=== PATIENT | female | born 1985 | race Caucasian/White ===

== ENCOUNTER 2016-10-25 09:11 | Emergency (ER) | payer MEDICAID ==
[~2016-10-25] VITALS: Ht 167.6 cm; Wt 91.0 kg
[~2016-10-25 09:11] MED LIST: MACR100C PO; PYRI200T4 PO
[2016-10-25 09:13] VITALS: BP 126/75; PULSE 95; RESP 16; TEMP 97.7; O2SAT 100
[2016-10-25 09:47] LABS: BASOPHIL # 0.1 TH/MM3 (0-0.2); BASOPHIL % 0.8 % (0.0-2.0); EOSINOPHIL # 0.2 TH/MM3 (0-0.4); EOSINOPHIL % 1.2 % (0.0-4.0); HEMATOCRIT 43.2 % (35.0-46.0); HEMO FLAGS DIFF FINAL; LYMPH % 37.2 % (9.0-44.0); LYMPHOCYTE # 4.7 TH/MM3 (1.0-4.8); MEAN CELL VOLUME 90.1 FL (80.0-100.0); MEAN CORPUSCULAR HEMOGLOBIN 31.3 PG (27.0-34.0); MEAN CORPUSCULAR HGB CONC 34.7 % (32.0-36.0); MONO % 5.9 % (0.0-8.0); NEUT % 54.9 % (16.0-70.0); PLATELET COUNT 330 TH/MM3 (150-450); RED BLOOD COUNT 4.79 MIL/MM3 (4.00-5.30); RED CELL DISTRIBUTION WIDTH 13.5 % (11.6-17.2); WHITE BLOOD COUNT 12.7 TH/MM3 (4.0-11.0)
[2016-10-25 09:58] LABS: APTT (PATIENT) 29.9 SEC (24.3-30.1); PROTHROMBIN TIME - PATIENT 10.6 SEC (9.8-11.6)
[2016-10-25 10:00] VITALS: BP 131/84; PULSE 77; RESP 16; O2SAT 98
[2016-10-25 10:02] LABS: ANION GAP 10 MEQ/L (5-15); AST (GOT) 24 U/L (15-37); BICARBONATE 20.7 MEQ/L (21.0-32.0); BLOOD UREA NITROGEN 15 MG/DL (7-18); CHLORIDE 107 MEQ/L (98-107); GLOMERULAR FILTRATION RATE 70 ML/MIN (>89); POTASSIUM 3.7 MEQ/L (3.5-5.1); SODIUM (NA) 138 MEQ/L (136-145)
[2016-10-25 10:03] LABS: ALT (GPT) 32 U/L (10-53)
[2016-10-25 10:07] LABS: ALKALINE PHOSPHATASE 49 U/L (45-117); TOTAL BILIRUBIN ADULT 0.4 MG/DL (0.2-1.0)
[2016-10-25] MEDS ORDERED: LORazepam 2 MG/ML VIAL IV PUSH ONE (10:15)
[2016-10-25] MEDS ORDERED: SODIUM CHLOR 0.9% 1000 ML INJ 1,000 ML IV ONE (10:15)
[2016-10-25] MEDS ORDERED: KETOROLAC TROMETHAMINE 30 MG/ML (IVP) VIAL IV PUSH ONE (10:15)
--- NOTE | 2016-10-25 10:20 | RADRPT ---
EXAM DATE/TIME: 10/25/2016 09:52 [facility] COMPARISON: No previous studies available for comparison. INDICATIONS : Chest pain since this morning. MEDICAL HISTORY : None. SURGICAL HISTORY : None. ENCOUNTER: Initial ACUITY: 1 day PAIN SCORE: 8/10 LOCATION: Bilateral chest FINDINGS: A single view of the chest demonstrates the lungs to be symmetrically aerated without evidence of mas s, infiltrate or effusion. The cardiomediastinal contours are unremarkable. Osseous structures are intact. CONCLUSION: No acute disease. Sylvester Ellis MD on October 25, 2016 at 10:18 Board Certified Radiologist. This report was verified electronically.
[2016-10-25 11:00] VITALS: PULSE 84; RESP 18; O2SAT 99
[2016-10-25 11:45] LABS: BETA HCG QUANT LESS THAN 1 MIU/ML (0-5)
--- NOTE | 2016-10-25 11:59 | PD ---
HPI Chief Complaint: Chest Pain Time Seen by Provider: 09:45 Travel History International Travel<30 days: No Contact w/Intl Traveler<30days: No Traveled to known affect area: No History of Present Illness HPI Is a 31-year-old woman who presents to the emergency department complaining of chest pain. She is initially somewhat hysterical and hyperventilating. She states she has sharp stabbing chest pain that started abruptly this morning. The middle part of her chest. She has some associated abdominal discomfort and nausea. No vomiting. No change in her bowel movements. She also complains of numbness tingling around her face and her arms. She has otherwise been feeling generally well and healthy. No history of previous similar problems. She does have history of indigestion and reflux symptoms. She only uses NSAIDs very occasionally, alcohol occasionally, no recent significant use. History Past Medical History Narrative Medical GERD Medical History: Denies Significant Hx Tetanus Vaccination: Unknown Influenza Vaccination: No LMP: 2 weeks ago Menopausal: No : 2 Para: 1 Dilation and Curettage (D&C): Yes Past Surgical History Surgical History: No Previous Surgery Social History Alcohol Use: Yes ("VERY RARELY") Tobacco Use: No (quit 6 years ) Allergies-Medications (Allergen,Severity, Reaction): Coded Allergies: No Known Allergies (Verified , 10/25/16) Reported Meds & Prescriptions Reported Meds & Active Scripts Active No Active Prescriptions or Reported Medications Review of Systems Except as stated in HPI: all other systems reviewed are Neg Physical Exam Narrative GENERAL: Well-appearing 31 year-old woman, tachypnea can somewhat hysterical. SKIN: Focused skin assessment warm/dry. HEAD: Atraumatic. Normocephalic. CARDIOVASCULAR: Regular rate and rhythm. No murmur appreciated. RESPIRATORY: No accessory muscle use. Clear to auscultation. Breath sounds equal bilaterally. GASTROINTESTINAL: Abdomen soft, non-tender, nondistended. Hepatic and splenic margins not palpable. MUSCULOSKELETAL: No obvious deformities. No edema. NEUROLOGICAL: Awake and alert. No obvious cranial nerve deficits. Motor grossly within normal limits. Normal speech. PSYCHIATRIC: Appropriate mood and affect; insight and judgment normal. Data Data Last Documented VS Vital Signs Date Time Temp Pulse Resp B/P Pulse Ox O2 Delivery O2 Flow Rate FiO2 10/25/16 12:00 116 20 122/84 100 Nasal Cannula 2 10/25/16 09:13 97.7 Orders Electrocardiogram (10/25/16 ) Complete Blood Count With Diff (10/25/16 09:21) Comprehensive Metabolic Panel (10/25/16 09:21) Troponin I (10/25/16 09:21) Prothrombin Time / Inr (Pt) (10/25/16 09:21) Act Partial Throm Time (Ptt) (10/25/16 09:21) D-Dimer (10/25/16 09:45) Chest, Single Ap (10/25/16 ) Beta Hcg (Quant/Titer) (10/25/16 09:45) Us Abdomen Gallbladder (10/25/16 ) Ketorolac Inj (Toradol Inj) (10/25/16 10:15) Sodium Chlor 0.9% 1000 Ml Inj (Ns 1000 M (10/25/16 10:15) Lorazepam Inj (Ativan Inj) (10/25/16 10:15) Labs Laboratory Tests Test 10/25/16 09:25 White Blood Count 12.7 TH/MM3 Red Blood Count 4.79 MIL/MM3 Hemoglobin 15.0 GM/DL Hematocrit 43.2 % Mean Corpuscular Volume 90.1 FL Mean Corpuscular Hemoglobin 31.3 PG Mean Corpuscular Hemoglobin 34.7 % Concent Red Cell Distribution Width 13.5 % Platelet Count 330 TH/MM3 Mean Platelet Volume 7.9 FL Neutrophils (%) (Auto) 54.9 % Lymphocytes (%) (Auto) 37.2 % Monocytes (%) (Auto) 5.9 % Eosinophils (%) (Auto) 1.2 % Basophils (%) (Auto) 0.8 % Neutrophils # (Auto) 7.0 TH/MM3 Lymphocytes # (Auto) 4.7 TH/MM3 Monocytes # (Auto) 0.7 TH/MM3 Eosinophils # (Auto) 0.2 TH/MM3 Basophils # (Auto) 0.1 TH/MM3 CBC Comment DIFF FINAL Differential Comment Prothrombin Time 10.6 SEC Prothromb Time International 1.0 RATIO Ratio Activated Partial 29.9 SEC Thromboplast Time D-Dimer Quantitative (PE/DVT) 0.26 MG/L FEU Sodium Level 138 MEQ/L Potassium Level 3.7 MEQ/L Chloride Level 107 MEQ/L Carbon Dioxide Level 20.7 MEQ/L Anion Gap 10 MEQ/L Blood Urea Nitrogen 15 MG/DL Creatinine 0.92 MG/DL Estimat Glomerular Filtration 70 ML/MIN Rate Random Glucose 100 MG/DL Calcium Level 9.2 MG/DL Total Bilirubin 0.4 MG/DL Aspartate Amino Transf 24 U/L (AST/SGOT) Alanine Aminotransferase 32 U/L (ALT/SGPT) Alkaline Phosphatase 49 U/L Troponin I LESS THAN 0.02 NG/ML Total Protein 8.6 GM/DL Albumin 4.3 GM/DL Human Chorionic Gonadotropin, LESS THAN 1 Quant MIU/ML [facility] Medical Decision Making Medical Screen Exam Complete: Yes Emergency Medical Condition: Yes Interpretation(s) My review of EKG: Normal sinus rhythm at a rate of 97, normal axis, normal intervals, no acute ischemia. LABS: CBC remarkable for mild leukocytosis. CMP generally unremarkable. Troponin negative. HCG negative. D-dimer normal Coags unremarkable Chest x-ray negative. Differential Diagnosis Gastritis, pancreatitis, cholecystitis, ACS, PE, other Narrative Course Medical decision making 31-year-old woman presents to the emergency department with epigastric pain rating into the chest associated with tachypnea and hyperventilation. I think her numbness and tingling is from hyperventilation. This seems to be GI in origin. I don't see evidence of PE or ACS. We'll check labs, x-ray, ultrasound of the right upper quadrant, reassess. Diagnosis Primary Impression: Gastritis Additional Instructions: Take Lortab if needed for pain. Take ranitidine as prescribed. Return to the emergency department for any worsening abdominal pain, chest pain , trouble breathing, or any other new or worsening symptoms. Med/Other Pt SpecificInfo: Prescription(s) given Scripts Hydrocodone-Acetaminophen (Lortab)5-325 Mg Tab1-2 Tab PO Q6H PRN (PAIN) #12 TAB Prov:Alfonso Bruner MD 10/25/16 Ranitidine 150 Mg [id number] Mg PO BID #60 CAP Prov:Alfonso Bruner MD 10/25/16 Disposition: 01 DISCHARGE HOME Condition: Stable Alfonso Bruner MD Oct 25, 2016 11:59
[2016-10-25 12:00] VITALS: BP 122/84; PULSE 116; RESP 20; O2SAT 100
--- NOTE | 2016-10-25 13:47 | EKG ---
Date Performed: 10/25/2016 Time Performed: 09:15:23 PTAGE: 31 years EKG: Baseline artifact present Sinus rhythm NORMAL ECG NO PREVIOUS TRACING DOCTOR: Uday Diehl Interpretating Date/Time 10/25/2016 13:46:52
--- NOTE | 2016-10-25 14:58 | RADRPT ---
EXAM DATE/TIME: 10/25/2016 10:39 [facility] COMPARISON: None available. INDICATIONS : Right upper quadrant pain. MEDICAL HISTORY : Right upper quadrant pain. SURGICAL HISTORY : D&C. ENCOUNTER: Initial ACUITY: 1 day PAIN SCORE: 6/10 LOCATION: Right upper quadrant MEASUREMENTS: LIVER: 13.3 cm length COMMON DUCT: 3 mm RIGHT KIDNEY: 11.0 x 5.1 x 5.9 cm FINDINGS: LIVER: Normal echotexture without focal lesion or ductal dilatation. COMMON DUCT: No intraluminal mass or stone visualized. GALLBLADDER: Contains no stones, demonstrates no wall thickening or pericholecystic fluid. PANCREAS: The visualized portions are within normal limits. RIGHT KIDNEY: No evidence of hydronephrosis, stone, or mass. CONCLUSION: 1. Negative examination. Brett Wood MD on October 25, 2016 at 14:55 Board Certified Radiologist. This report was verified electronically.
[2016-10-25] MEDS ORDERED: RANI150C PO (15:05)
[2016-10-25] MEDS ORDERED: HYDR-3533 PO (15:05)
[2016-10-25 15:34] VITALS: BP 136/78
== END 2016-10-25 15:35 | disposition home or self-care (01) ==
LOC: NEPC 09:11
DX: K29.70 Gastritis, unspecified, without bleeding (principal)
CPT/HCPCS: 71010; 76705; 80053; 84484; 84702; 85025; 85379; 85610; 85730; 93005; 96361; 96374; 96375; 99285; J1885; J2060; J7030

== ENCOUNTER 2016-10-27 07:27 | Emergency (ER) | payer MEDICAID ==
[~2016-10-27] VITALS: Ht 167.6 cm; Wt 91.0 kg
[~2016-10-27 07:27] MED LIST changes: +HYDR-3533 PO; -MACR100C PO; -PYRI200T4 PO; +RANI150C PO
[2016-10-27 07:29] VITALS: BP 140/75; PULSE 88; RESP 17; TEMP 98.7; O2SAT 100
[2016-10-27 07:43] VITALS: BP 154/79; PULSE 81; RESP 12; TEMP 98.4; O2SAT 97
[2016-10-27] MEDS ORDERED: SODIUM CHLORIDE 0.9% FLUSH 10 ML FLUSH IV FLUSH PRN (07:45)
[2016-10-27 07:49] VITALS: O2SAT 99
[2016-10-27] MEDS ORDERED: SODIUM CHLOR 0.9% 1000 ML INJ 1,000 ML IV SCH (08:10)
--- NOTE | 2016-10-27 08:10 | PD ---
HPI Chief Complaint: GI Complaint Time Seen by Provider: 07:47 Travel History International Travel<30 days: No Contact w/Intl Traveler<30days: No Traveled to known affect area: No History of Present Illness HPI Patient is a 31-year-old female presents emergency department for second evaluation in 2 days of epigastric pain nausea vomiting. Patient was evaluated here by Dr. Bruner with lab works diagnosed with gastritis E other day. She states that since leaving she is continue to have pain, with some nausea and vomiting this morning and then she had some flecks of blood in her emesis this morning as well. She states prior to that it was just foamy emesis. Denies any diarrhea denies any constipation. She has not been taking any medicines at home to help her symptoms. She doesn't have a primary care physician with which to follow up with. No history of liver disease or kidney disease. Denies any dysuria vaginal bleeding vaginal discharge possibly for . PFSH Past Medical History Hx Anticoagulant Therapy: No Cancer: No Cardiovascular Problems: No Diabetes: No Diminished Hearing: No Endocrine: No Gastrointestinal Disorders: No Genitourinary: No Hepatitis: No Hiatal Hernia: No Hypertension: No Immune Disorder: No Musculoskeletal: No Neurologic: No Psychiatric: No Reproductive: Yes Respiratory: No Immunizations Current: Yes Thyroid Disease: No ?: Not LMP: 2 weeks ago Menopausal: No : 2 Para: 1 Miscarriage: 1 : 0 Ectopic : No Ovarian Cysts: No Dilation and Curettage (D&C): Yes Tubal Ligation: No Past Surgical History Surgical History: No Previous Surgery AICD: No Section: No Hysterectomy: No Joint Replacement: No Pacemaker: No Other Surgery: No Social History Alcohol Use: Yes ("VERY RARELY") Tobacco Use: No (quit 6 years ) Substance Use: No Allergies-Medications (Allergen,Severity, Reaction): Coded Allergies: No Known Allergies (Verified , 10/27/16) Reported Meds & Prescriptions Reported Meds & Active Scripts Active Zofran (Ondansetron HCl) 4 Mg Tab 4 Mg PO Q8HR PRN Lortab (Hydrocodone-Acetaminophen) 5-325 Mg Tab 1-2 Tab PO Q6H PRN Ranitidine (Ranitidine HCl) 150 Mg Cap 150 Mg PO BID Review of Systems Except as stated in HPI: all other systems reviewed are Neg Physical Exam Narrative GENERAL: Well-developed well-nourished no obvious distress. SKIN: Focused skin assessment warm/dry. HEAD: Atraumatic. Normocephalic. EYES: Pupils equal and round. No scleral icterus. No injection or drainage. ENT: No nasal bleeding or discharge. Mucous membranes pink and moist. NECK: Trachea midline. No JVD. CARDIOVASCULAR: Regular rate and rhythm. No murmur appreciated. RESPIRATORY: No accessory muscle use. Clear to auscultation. Breath sounds equal bilaterally. GASTROINTESTINAL: Abdomen soft, minimal tenderness in the epigastric area, nondistended. Hepatic and splenic margins not palpable. No CVA tenderness MUSCULOSKELETAL: No obvious deformities. No clubbing. No cyanosis. No edema. NEUROLOGICAL: Awake and alert. No obvious cranial nerve deficits. Motor grossly within normal limits. Normal speech. PSYCHIATRIC: Appropriate mood and affect; insight and judgment normal. Data Data Last Documented VS Vital Signs Date Time Temp Pulse Resp B/P Pulse Ox O2 Delivery O2 Flow Rate FiO2 10/27/16 07:49 99 Room Air 10/27/16 07:43 98.4 81 12 154/79 Orders Complete Blood Count With Diff (10/27/16 07:43) Comprehensive Metabolic Panel (10/27/16 07:43) Lipase (10/27/16 07:43) Urinalysis - C+S If Indicated (10/27/16 07:43) Iv Access Insert/Monitor (10/27/16 07:43) Ecg Monitoring (10/27/16 07:43) Oximetry (10/27/16 07:43) Sodium Chloride 0.9% Flush (Ns Flush) (10/27/16 07:45) Electrocardiogram (10/27/16 07:43) Ed Urine Pregnancytest Poc (10/27/16 07:43) Ondansetron Inj (Zofran Inj) (10/27/16 08:15) Sodium Chlor 0.9% 1000 Ml Inj (Ns 1000 M (10/27/16 08:10) Al-Mag Hy-Si 40-40-4 Mg/Ml Liq (Mag-Al P (10/27/16 08:15) Lidocaine 2% Viscous (Xylocaine 2% Visco (10/27/16 08:15) Labs Laboratory Tests Test 10/27/16 10/27/16 08:35 09:38 Urine Color LIGHT-YELLOW Urine Turbidity HAZY Urine pH 7.5 Urine Specific [place] 1.005 Urine Protein NEG mg/dL Urine Glucose (UA) NEG mg/dL Urine Ketones NEG mg/dL Urine Occult Blood NEG Urine Nitrite NEG Urine Bilirubin NEG Urine Urobilinogen LESS THAN 2.0 MG/DL Urine Leukocyte Esterase SMALL Urine RBC 1 /hpf Urine WBC 4 /hpf Urine Squamous Epithelial 5 /hpf Cells Urine Bacteria RARE /hpf Microscopic Urinalysis Comment CULT NOT INDICATED White Blood Count 11.8 TH/MM3 Red Blood Count 4.24 MIL/MM3 Hemoglobin 13.2 GM/DL Hematocrit 38.9 % Mean Corpuscular Volume 91.6 FL Mean Corpuscular Hemoglobin 31.1 PG Mean Corpuscular Hemoglobin 33.9 % Concent Red Cell Distribution Width 13.7 % Platelet Count 288 TH/MM3 Mean Platelet Volume 7.1 FL Neutrophils (%) (Auto) 69.7 % Lymphocytes (%) (Auto) 24.2 % Monocytes (%) (Auto) 4.6 % Eosinophils (%) (Auto) 0.8 % Basophils (%) (Auto) 0.7 % Neutrophils # (Auto) 8.2 TH/MM3 Lymphocytes # (Auto) 2.9 TH/MM3 Monocytes # (Auto) 0.6 TH/MM3 Eosinophils # (Auto) 0.1 TH/MM3 Basophils # (Auto) 0.1 TH/MM3 CBC Comment DIFF FINAL Differential Comment Sodium Level 141 MEQ/L Potassium Level 3.4 MEQ/L Chloride Level 112 MEQ/L Carbon Dioxide Level 21.5 MEQ/L Anion Gap 8 MEQ/L Blood Urea Nitrogen 13 MG/DL Creatinine 0.72 MG/DL Estimat Glomerular Filtration 93 ML/MIN Rate Random Glucose 93 MG/DL Calcium Level 8.3 MG/DL Total Bilirubin 0.4 MG/DL Aspartate Amino Transf 10 U/L (AST/SGOT) Alanine Aminotransferase 22 U/L (ALT/SGPT) Alkaline Phosphatase 40 U/L Total Protein 7.5 GM/DL Albumin 3.9 GM/DL Lipase 72 U/L [facility] Medical Decision Making Medical Screen Exam Complete: Yes Emergency Medical Condition: Yes Interpretation(s) EKG shows normal sinus rhythm normal axis normal R-wave progression. No concerning ST segment changes. Intervals within normal limits. This is a normal EKG. Differential Diagnosis Gastritis, gastric enteritis, Pancreatitis, cholecystitis, Erlinda-Mckee tear, esophageal varices bleeding highly unlikely. Narrative Course Patient roomed emergency department, given a GI cocktail as well as Zofran and fluids. She is feeling better. Initial laboratory workup negative. No indication for she'll call imaging at this time. Discussed with her need follow -up with a gastric neurologist for endoscopy for probable peptic ulcer disease. She verbalized understanding and agreement. Discussed symptomatic management home follow up with her primary care physician return to ED criteria. Diagnosis Primary Impression: Epigastric abdominal pain Referrals: Roberto Douglass MD Additional Instructions: Giancarlo take her ranitidine scripts as prescribed. Follow-up with a GI doctor as above. Take Tums as needed for worsening pain. Med/Other Pt SpecificInfo: Prescription(s) given Scripts Ondansetron (Zofran)4 Mg Tab4 Mg PO Q8HR PRN (NAUSEA OR VOMITING) #20 TAB Ref 0 Prov:Sylvester Castaneda MD 10/27/16 Disposition: 01 DISCHARGE HOME Condition: Stable Sylvester Castaneda MD Oct 27, 2016 08:10
[2016-10-27] MEDS ORDERED: ALUMINUM/MAGNESIUM/SIMETH 30 ML CUP PO ONE (08:15)
[2016-10-27] MEDS ORDERED: LIDOCAINE VISCOUS 2% SOLN 15 ML UDC PO ONE (08:15)
[2016-10-27] MEDS ORDERED: ONDANSETRON HCL 4 MG/2 ML VIAL IVP ONE (08:15)
[2016-10-27 09:23] LABS: BACTERIA, URINE RARE /hpf; BLOOD, URINE NEG (NEG); COMMENT (UR) CULT NOT INDICATED; CULTURE IF INDICATED CULT NOT INDICATED; GLUCOSE,URINE NEG (NEG); KETONE, URINE NEG (NEG); NITRITE,URINE NEG (NEG); PH, URINE 7.5 (5.0-8.5); SQUAMOUS EPITHELIAL CELL URINE 5 /hpf (0-5); URINE COLOR LIGHT-YELLOW (YELLW/STRAW)
[2016-10-27 09:54] LABS: AUTOMATED NEUTROPHIL # 8.2 TH/MM3 (1.8-7.7); BASOPHIL # 0.1 TH/MM3 (0-0.2); BASOPHIL % 0.7 % (0.0-2.0); EOSINOPHIL # 0.1 TH/MM3 (0-0.4); EOSINOPHIL % 0.8 % (0.0-4.0); HEMATOCRIT 38.9 % (35.0-46.0); HEMO FLAGS DIFF FINAL; LYMPH % 24.2 % (9.0-44.0); LYMPHOCYTE # 2.9 TH/MM3 (1.0-4.8); MEAN CELL VOLUME 91.6 FL (80.0-100.0); MEAN CORPUSCULAR HEMOGLOBIN 31.1 PG (27.0-34.0); MEAN CORPUSCULAR HGB CONC 33.9 % (32.0-36.0); MONO % 4.6 % (0.0-8.0); NEUT % 69.7 % (16.0-70.0); PLATELET COUNT 288 TH/MM3 (150-450); RED BLOOD COUNT 4.24 MIL/MM3 (4.00-5.30); RED CELL DISTRIBUTION WIDTH 13.7 % (11.6-17.2); WHITE BLOOD COUNT 11.8 TH/MM3 (4.0-11.0)
[2016-10-27 10:12] LABS: ALKALINE PHOSPHATASE 40 U/L (45-117); ALT (GPT) 22 U/L (10-53); ANION GAP 8 MEQ/L (5-15); AST (GOT) 10 U/L (15-37); BICARBONATE 21.5 MEQ/L (21.0-32.0); BLOOD UREA NITROGEN 13 MG/DL (7-18); CHLORIDE 112 MEQ/L (98-107); GLOMERULAR FILTRATION RATE 93 ML/MIN (>89); POTASSIUM 3.4 MEQ/L (3.5-5.1); SODIUM (NA) 141 MEQ/L (136-145); TOTAL BILIRUBIN ADULT 0.4 MG/DL (0.2-1.0)
[2016-10-27] MEDS ORDERED: ZOFR4TAB PO (10:26)
--- NOTE | 2016-10-27 16:43 | EKG ---
Date Performed: 10/27/2016 Time Performed: 08:30:43 PTAGE: 31 years EKG: Sinus rhythm POSSIBLE RIGHT VENTRICULAR CONDUCTION DELAY BORDERLINE ECG PREVIOUS TRACING : 10/25/2016 09.15 Compared to prior tracing no significant change DOCTOR: Onofre Huynh Interpretating Date/Time 10/27/2016 16:41:47
== END 2016-10-27 11:35 | disposition home or self-care (01) ==
LOC: NEPC 07:27
DX: R10.13 Epigastric pain (principal); R11.2 Nausea with vomiting, unspecified; Z79.899 Other long term (current) drug therapy
CPT/HCPCS: 80053; 81001; 83690; 84703; 85025; 93005; 96374; 99284; J2405; J7030

== ENCOUNTER 2017-03-27 18:10 | Emergency (ER) | payer MEDICAID ==
[~2017-03-27] VITALS: Ht 167.6 cm; Wt 81.8 kg
[~2017-03-27 18:10] MED LIST changes: +ZOFR4TAB PO
[2017-03-27 18:11] VITALS: BP 143/78; PULSE 71; RESP 16; TEMP 98.1; O2SAT 100
[2017-03-27] MEDS ORDERED: MELO15TA20 PO (19:10)
--- NOTE | 2017-03-27 19:11 | PD ---
HPI Chief Complaint: Skin Problem Time Seen by Provider: 18:41 Travel History International Travel<30 days: No Contact w/Intl Traveler<30days: No Traveled to known affect area: No History of Present Illness HPI This is a 32-year-old female here with a partial avulsion to the left great toe. Injury occurred yesterday evening when she stubbed her toe on an area rug. She has pain within the toenail is touched. Pain is alleviated with rest. Symptom severity is moderate. PFSH Past Medical History Hx Anticoagulant Therapy: No Cancer: No Cardiovascular Problems: No Diabetes: No Diminished Hearing: No Endocrine: No Gastrointestinal Disorders: No Genitourinary: No Hepatitis: No Hiatal Hernia: No Hypertension: No Immune Disorder: No Musculoskeletal: No Neurologic: No Psychiatric: No Reproductive: Yes Respiratory: No Immunizations Current: Yes Thyroid Disease: No ?: Not LMP: 03/20/2017 Menopausal: No : 2 Para: 1 Miscarriage: 1 : 0 Ectopic : No Ovarian Cysts: No Dilation and Curettage (D&C): Yes Tubal Ligation: No Past Surgical History AICD: No Section: No Hysterectomy: No Joint Replacement: No Pacemaker: No Other Surgery: No Social History Alcohol Use: Yes ("VERY RARELY") Tobacco Use: No (quit 6 years ) Substance Use: No Allergies-Medications (Allergen,Severity, Reaction): Coded Allergies: No Known Allergies (Verified , 10/27/16) Reported Meds & Prescriptions Reported Meds & Active Scripts Active Zofran (Ondansetron HCl) 4 Mg Tab 4 Mg PO Q8HR PRN Lortab (Hydrocodone-Acetaminophen) 5-325 Mg Tab 1-2 Tab PO Q6H PRN Ranitidine (Ranitidine HCl) 150 Mg Cap 150 Mg PO BID Review of Systems Except as stated in HPI: all other systems reviewed are Neg General / Constitutional: No: Fever Eyes: No: Visual changes HENT: No: Headaches Cardiovascular: No: Chest Pain or Discomfort Respiratory: No: Shortness of Breath Gastrointestinal: No: Abdominal Pain Genitourinary: No: Dysuria Physical Exam Narrative GENERAL: Alert well-appearing female SKIN: Warm and dry. HEAD: Normocephalic. EYES:No injection or drainage. NECK: Supple, trachea midline. MUSCULOSKELETAL: No cyanosis, or edema. Left foot: Partial toenail avulsion to the left great toe. No bony tenderness. Patient is able to flex and extend the great toe without difficulty. Normal sensation. Data Data Last Documented VS Vital Signs Date Time Temp Pulse Resp B/P (MAP) Pulse Ox O2 Delivery O2 Flow Rate FiO2 03/27/17 18:25 03/27/17 18:11 98.1 71 16 100 MDM Medical Decision Making Medical Screen Exam Complete: Yes Emergency Medical Condition: Yes Differential Diagnosis Toenail avulsion, nail bed injury, contusion Narrative Course 32-year-old female here with partial toenail avulsion. The extremity is neurovascularly intact. Toenail removed. Patient tolerated procedure well. Procedures Procedure Narrative Toenail removal: Digital block performed with 1% lidocaine. Toenail removed with light traction using hemostats. Patient tolerated procedure well. Diagnosis Primary Impression: Toenail avulsion Qualified Codes: S91.209A - Unspecified open wound of unspecified toe(s) with damage to nail, initial encounter Referrals: Primary Care Physician Additional Instructions: Cleansed the area daily with soap and water. Apply bacitracin or antibiotic ointment to the nail bed. Meloxicam as needed for pain. Follow-up with your primary doctor Scripts Meloxicam (Meloxicam) 15 Mg Tab 15 MG PO DAILY for Arthritis Pain, #14 TAB 0 Refills Prov: Dominga Anderson 03/27/17 Disposition: 01 DISCHARGE HOME Condition: Stable Dominga Anderson Mar 27, 2017 19:11
== END 2017-03-27 19:25 | disposition home or self-care (01) ==
LOC: NEPK 18:10
DX: S91.202A Unspecified open wound of left great toe with damage to nail, initial encounter (principal); W22.09XA Striking against other stationary object, initial encounter
CPT/HCPCS: 11730